=== PATIENT | female | born 1960 | race Caucasian/White ===

== ENCOUNTER → 2022-01-19 | Outpatient (CLI) | payer OTHER ==
[~2022-01-19] VITALS: Ht 170.2 cm; Wt 127.0 kg
[~2022-01-19] MED LIST: AMLO2.5T PO; ATR20T PO; INTE30KI4 IM; LOSA50TA6 PO; MULT-963 PO; NF-VITD400 PO; OMEP-10 PO; PANT40TA52 PO; TRIA1CAP PO; VITA200C18 PO; [UNRECOGNIZED DRUG - OTHER] PO; baby aspirin PO; calcium PO; potassium chloride PO
== END | disposition home or self-care (01) ==
LOC: PREOP 06:20
PROVIDERS: ATTEND Internal Medicine
DX: Z01.818 Encounter for other preprocedural examination (principal)

== ENCOUNTER 2022-01-23 07:41 | Day surgery (SDC) | payer OTHER ==
--- NOTE | 2022-01-20 07:29 | HISTORY AND PHYSICAL ---
DATE OF SERVICE: 01/23/2022 COLONOSCOPY HISTORY AND PHYSICAL DATE OF ADMISSION: 01/23/2022. HISTORY OF PRESENT ILLNESS: The patient is a 61-year-old white female referred for a second screening colonoscopy. She accomplished the first one 10 years ago, which revealed no evidence for neoplasia at that time. Her mother and her sister were diagnosed with breast cancer and she does report that she had genetic testing and she had a PAL-B2 gene mutation, which mostly increases risk for breast cancer. She was told that there was a slight increased risk in colon cancer, but they just recommended usual screening recommendations. She is followed for breast health at and gets MRIs of the breast, which have been unremarkable thus far per her report. She denies any bowel habit changes, noted no bright red blood per rectum, melena, and denies abdominal pain, diarrhea or constipation problems. SOCIAL HISTORY: She is an general ledger accountant with no past smoking or drinking history. FAMILY HISTORY: Father at the age of 76 with complications of heart disease. Mother of breast cancer at the age of 82. Sister recently diagnosed with breast cancer in her late 50s and of disease at the age of 63 and one brother, who succumbed in his 50s to cirrhosis, alcohol related. PAST SURGICAL HISTORY: She has had cholecystectomy, rotator cuff repair, ACL repair, and tubal ligation. REVIEW OF SYSTEMS: CONSTITUTIONAL: Denies night sweats, chills, fever, change in weight. PULMONARY: Denies cough, wheezing or shortness of breath. CARDIOVASCULAR: Denies orthopnea, PND, pedal edema or chest discomfort. GASTROINTESTINAL: As noted in the HPI. PAST MEDICAL HISTORY: Significant for hypertension, hyperlipidemia, and thyroid replacement for Magalis's thyroiditis as well as gastroesophageal reflux, which she reports is well controlled on daily pantoprazole. She also has a history of sleep apnea on CPAP with 2 liters of oxygen at night and no oxygen during the day and no history of COPD. PHYSICAL EXAMINATION: GENERAL: Reveals a pleasant white female, 250 pounds with a blood pressure of 140/78. HEENT: Unremarkable. Sclerae nonicteric. CHEST: Clear to auscultation. CARDIOVASCULAR: Reveals a regular rate and rhythm without murmur, S3 or S4. ABDOMEN: Soft, supple without mass, organomegaly or tenderness. Bowel sounds positive. No evidence for distention. EXTREMITIES: Reveal no cyanosis, clubbing or edema. ASSESSMENT AND PLAN: The patient is being set up for screening colonoscopy. Prep instructions with the Suprep kit were given and questions were answered. The patient does take a baby aspirin daily, was advised to discontinue that until after evaluation, which is being set up for 01/23/2022. Prep instructions with Suprep kit were given and questions were answered. Job ID: [id number] DocumentID: [id number] Dictated Date: 01/15/2022 16:40:15 Anesthesiologist Assistant Date: 01/15/2022 16:58:07 Dictated By: LING SANDERS MD
[~2022-01-23] VITALS: Ht 170.2 cm; Wt 127.0 kg
[~2022-01-23 07:41] MED LIST changes: +LACTATED RINGERS 1,000 ML IV STA
[2022-01-23] MEDS ORDERED: LIDOCAINE JELLY 2% 6 ML SYRINGE MM PRN (07:45)
[2022-01-23] MEDS ORDERED: LACTATED RINGERS 1,000 ML IV ONE (07:45)
[2022-01-23 07:50] VITALS: BP 183/84
[2022-01-23] MEDS ORDERED: PROPOFOL INJECTION 50 ML IV ONE (08:04)
[2022-01-23] MEDS ORDERED: LIDOCAINE 1% INJ 50 ML (XYLOCAINE) VIAL ONE (08:04)
--- NOTE | 2022-01-23 08:04 | Pre-Op Note & Conscious Sedat ---
Pre-Operative Progress Note H&P Reviewed The H&P was reviewed, patient examined and no changes noted. Date H&P Reviewed: Jan 23, 2022 Time H&P Reviewed: 08:04 Conscious Sedation Pre-Proced ASA Score 2 For ASA 3 and 4: Consider anesthesia and medical clearance. Also, for patients with a history of failed moderate sedation consider anesthesia. Airway Lungs Heart ASA score ASA 1: a normal healthy patient ASA 2: a patient with a mild systemic disease (mid diabetes, controlled hypertension, obesity ASA 3: a patient with a severe systemic disease that limits activity (angina, COPD, prior Myocardial infarction) ASA 4: a patient with an incapacitating disease that is a constant threat to life (CHF, renal failure) ASA 5: a moribund patient not expected to survive 24 hrs. (ruptured aneurysm) ASA 6: a declared brain- patient whose organs are being harvested. For emergent operations, add the letter E after the classification Mallampati Classification Grade 2 Sedation Plan Analgesia, Amnesia, Plan communicated to team members, Discussed options with patient/fam, Discussed risks with patient/fam The patient is an appropriate candidate to undergo the planned procedure, sedation, and anesthesia. The patient immediately re-assessed prior to indication. LING SANDERS MD Jan 23, 2022 08:04
[2022-01-23 08:40] VITALS: BP 135/63
[2022-01-23 08:44] VITALS: BP 135/63
[2022-01-23 09:05] VITALS: BP 128/62
--- NOTE | 2022-01-23 09:21 | OPERATIVE REPORT ---
DATE OF SERVICE: SCREENING COLONOSCOPY SUMMARY DESCRIPTION OF PROCEDURE: The patient was placed in the left lateral decubitus position. Prior to undergoing colonoscopy, digital rectal evaluation was performed. Anal sphincter tone was normal and the perianal reflexes intact. No abnormalities were noted on digital inspection of anal canal or distal rectal vault. The colonoscope was then inserted into the rectum and under direct visualization advanced to the cecum. The cecum was identified by identification of ileocecal valve and cecal strap. Photographic documentation was obtained. Careful inspection was made as the colonoscope withdrawn. Quality of prep was fair. There is a little bit of semi-solid stool in the cecum and proximal ascending colon. FINDINGS: There was no evidence for internal or external hemorrhoids. The rectum was unremarkable. Several small sigmoid diverticulum were present without evidence for diverticulitis. No other sigmoid colonic abnormalities appreciated. The descending colon, splenic flexure, transverse colon and hepatic flexure were unremarkable. Present in the proximal to mid ascending colon was diminutive 3 mm sessile polyp, was photographed and biopsied and ablated with no subsequent blood loss. The remainder of the ascending colon and cecum were unremarkable. ASSESSMENT: One diminutive polyp was removed from the proximal and mid ascending colon. As long as there are no surprise on histopathology report, would advocate consideration for repeat screening colonoscopy in 10 years. Mild diverticular disease confined to the sigmoid colon was present without evidence for diverticulitis. Job ID: [id number] DocumentID: [id number] Dictated Date: 01/23/2022 08:40:28 Air Quality Manager Date: 01/23/2022 09:20:05 Dictated By: LING SANDERS MD
--- NOTE | 2022-01-23 10:03 | Anesthesia-General Post-Op ---
General Patient Condition Mental Status/LOC: Same as Preop Cardiovascular: Satisfactory Nausea/Vomiting: Absent Respiratory: Satisfactory Pain: Controlled Complications: Absent Post Op Complications Complications None Follow Up Care/Instructions Patient Instructions None needed. Anesthesia/Patient Condition Patient Condition Patient is doing well, no complaints, stable vital signs, no apparent adverse anesthesia problems. No complications reported per nursing. D/C home per [facility] Criteria: Yes STEPHANIE CONTRERAS CRNA Jan 23, 2022 10:03
== END 2022-01-23 09:27 | disposition home or self-care (01) ==
LOC: ENDO 07:41
PROVIDERS: ATTEND Internal Medicine
DX: Z12.11 Encounter for screening for malignant neoplasm of colon (principal); D12.2 Benign neoplasm of ascending colon; K57.30 Diverticulosis of large intestine without perforation or abscess without bleeding; E66.9 Obesity, unspecified; Z68.41 Body mass index [BMI] 40.0-44.9, adult; Z80.3 Family history of malignant neoplasm of breast; Z79.82 Long term (current) use of aspirin